=== PATIENT | male | born 1985 | race Caucasian/White ===

== ENCOUNTER 2024-11-25 17:14 | Inpatient (IN) | payer OTHER ==
[~2024-11-25] VITALS: Ht 172.7 cm; Wt 106.7 kg
[2024-11-25] MEDS ORDERED: LEVO-72 PO (18:12)
[2024-11-25] MEDS ORDERED: PANT-31 PO (18:12)
[2024-11-25] MEDS ORDERED: MOME17SP11 NASAL (18:12)
[2024-11-25] MEDS ORDERED: CETI-432 PO (18:12)
[2024-11-25] MEDS ORDERED: TAMS0.4C94 PO (18:12)
[2024-11-25] MEDS ORDERED: ESCI-8 PO (18:12)
[2024-11-25] MEDS ORDERED: FENO54TA7 PO (18:12)
[2024-11-25 18:57] LABS: PLATELET COUNT (AUTO) 338 K/uL (150-450); RED BLOOD CELL COUNT(AUTO) 5.69 MIL/uL (4.50-5.90); RED CELL DISTRIBUTION WIDTH 13.2 % (11.5-14.5); WHITE BLOOD COUNT (AUTO) 14.2 K/uL (4.5-11.0)
[2024-11-25 19:05] LABS: CALCIUM, TOTAL 10.1 mg/dL (8.8-10.5); CREATININE 1.32 mg/dL (0.60-1.30); GLOMERULAR FILTR. RATE CALC > 60 mL/min (>60); GLUCOSE,RANDOM 101 mg/dL (70-110); SODIUM SERUM 138 mmol/L (136-145); UREA NITROGEN, BLOOD 21 mg/dL (7-18)
[2024-11-25 20:10] LABS: APPEARANCE,URINE TURBID (CLEAR); GLUCOSE, URINE (UA) TRACE mg/dL (NEGATIVE); LEUKOCYTE ESTERASE ,URINE SMALL (NEGATIVE); NITRATE,URINE POSITIVE (NEGATIVE); OCCULT BLOOD,URINE NEGATIVE (NEGATIVE); SPECIFIC GRAVITIY, URINE 1.043 (1.003-1.030)
[2024-11-25 20:28] LABS: SULFOSALICYLIC ACID,URINE 1+ (Negative)
[2024-11-25 20:30] LABS: AMORPHOUS SEDIMENT,UR Few /LPF (None Seen); CALCIUM OXALATE CRYSTALS,UR Moderate /LPF (None Seen); SQUAMOUS EPITHELIAL CELL,UR Rare /LPF (None Seen)
[2024-11-25] MEDS: ONDANSETRON HCL 4 MG/2 ML VIAL IVP ONE (20:54)
[2024-11-25] MEDS: MORPHINE SULFATE 4 MG/ML SYRINGE IVP ONE (20:54)
[2024-11-25] MEDS: SODIUM CHLORIDE 0.9% 2,000 ML IV ONE (20:55)
[2024-11-25] MEDS ORDERED: MAGNESIUM HYDROXIDE SUSPENSION 30 ML UDCUP PO PRN (21:15)
[2024-11-25] MEDS ORDERED: ZOLPIDEM TARTRATE 5 MG TABLET PO PRN (21:15)
[2024-11-25] MEDS ORDERED: ACETAMINOPHEN 325 MG TABLET PO PRN (21:15)
[2024-11-25] MEDS ORDERED: BISACODYL 10 MG RECTAL RECTAL SUPPOSITORY PR PRN (21:15)
[2024-11-25] MEDS ORDERED: SODIUM CHLORIDE 0.9% 1,000 ML IV ONE (21:30)
[2024-11-25 22:15] LABS: C.DIFF GDH ANTIGEN, Stool Negative (Negative); C.DIFF TOXINS A&B, Stool Negative (Negative)
[2024-11-25 22:31] VITALS: BP 133/90; PULSE 104; RESP 17; TEMP 98.6; O2SAT 96
[2024-11-26] MEDS: HEPARIN SODIUM,PORCINE 5,000 UNITS/ML VIAL SQ SCH
[2024-11-26 04:04] VITALS: BP 123/83; PULSE 83; RESP 16; TEMP 98.2; O2SAT 96
[2024-11-26] MEDS: MORPHINE SULFATE 2 MG/ML SYRINGE IVP ONE (04:10)
[2024-11-26] MEDS: ONDANSETRON HCL 4 MG/2 ML VIAL IVP PRN (04:11)
[2024-11-26] MEDS: SODIUM CHLORIDE 0.9% 1,000 ML IV ONE (04:37)
[2024-11-26 06:23] LABS: PLATELET COUNT (AUTO) 283 K/uL (150-450); RED BLOOD CELL COUNT(AUTO) 4.95 MIL/uL (4.50-5.90); RED CELL DISTRIBUTION WIDTH 13.5 % (11.5-14.5); WHITE BLOOD COUNT (AUTO) 9.3 K/uL (4.5-11.0)
[2024-11-26 06:34] LABS: CALCIUM, TOTAL 8.3 mg/dL (8.8-10.5); CREATININE 0.88 mg/dL (0.60-1.30); GLOMERULAR FILTR. RATE CALC > 60 mL/min (>60); GLUCOSE,RANDOM 88 mg/dL (70-110); SODIUM SERUM 142 mmol/L (136-145); UREA NITROGEN, BLOOD 16 mg/dL (7-18)
[2024-11-26 08:29] VITALS: BP 121/73; PULSE 75; RESP 18; TEMP 97.7; O2SAT 95
[2024-11-26] MEDS: DOCUSATE SODIUM 100 MG CAPSULE PO SCH (09:00)
[2024-11-26] MEDS: FENOFIBRATE 54 MG TABLET PO SCH (09:00)
[2024-11-26] MEDS: TAMSULOSIN HCL 0.4 MG CAPSULE PO SCH (09:00)
[2024-11-26] MEDS ORDERED: PANTOPRAZOLE SODIUM 40 MG DR TABLET PO SCH (09:00)
[2024-11-26] MEDS: CETIRIZINE HCL 10 MG TABLET PO SCH (09:00)
[2024-11-26] MEDS: ESCITALOPRAM OXALATE 10 MG TABLET PO SCH (09:00)
[2024-11-26] MEDS: PANTOPRAZOLE SODIUM 40 MG DR TABLET PO SCH (09:00)
[2024-11-26] MEDS: MOMETASONE FUROATE 50 MCG/SPRAY 17 GM NASAL SPRAY NASAL SCH (09:30)
[2024-11-26] MEDS: MORPHINE SULFATE 2 MG/ML SYRINGE IVP PRN (11:15)
[2024-11-26] MEDS: SODIUM CHLORIDE 0.9% 1,000 ML IV SCH (11:21)
[2024-11-26 15:29] VITALS: BP 118/73; PULSE 68; RESP 20; TEMP 98.3; O2SAT 97
[2024-11-26 19:23] VITALS: BP 138/94; PULSE 73; RESP 20; TEMP 97.9; O2SAT 96
[2024-11-27 04:48] VITALS: BP 121/82; PULSE 75; RESP 20; TEMP 97.7; O2SAT 96
[2024-11-27 07:15] VITALS: BP 113/84; PULSE 71; RESP 18; TEMP 97.9; O2SAT 97
[2024-11-27 07:25] LABS: CALCIUM, TOTAL 8.4 mg/dL (8.8-10.5); CREATININE 0.80 mg/dL (0.60-1.30); GLOMERULAR FILTR. RATE CALC > 60 mL/min (>60); GLUCOSE,RANDOM 91 mg/dL (70-110); SODIUM SERUM 139 mmol/L (136-145); UREA NITROGEN, BLOOD 11 mg/dL (7-18)
[2024-11-27 07:26] LABS: PLATELET COUNT (AUTO) 263 K/uL (150-450); RED BLOOD CELL COUNT(AUTO) 4.79 MIL/uL (4.50-5.90); RED CELL DISTRIBUTION WIDTH 13.3 % (11.5-14.5); WHITE BLOOD COUNT (AUTO) 6.9 K/uL (4.5-11.0)
[2024-11-27 20:00] VITALS: BP 123/85; PULSE 78; RESP 18; TEMP 97.7; O2SAT 97
[2024-11-28 01:50] VITALS: BP 118/82; PULSE 72; RESP 18; O2SAT 96
[2024-11-28 05:39] VITALS: BP 113/75; PULSE 69; RESP 17; TEMP 97.7; O2SAT 96
[2024-11-28 06:58] LABS: CALCIUM, TOTAL 8.1 mg/dL (8.8-10.5); CREATININE 0.82 mg/dL (0.60-1.30); GLOMERULAR FILTR. RATE CALC > 60 mL/min (>60); GLUCOSE,RANDOM 85 mg/dL (70-110); PLATELET COUNT (AUTO) 233 K/uL (150-450); RED BLOOD CELL COUNT(AUTO) 4.38 MIL/uL (4.50-5.90); RED CELL DISTRIBUTION WIDTH 13.0 % (11.5-14.5); SODIUM SERUM 140 mmol/L (136-145); UREA NITROGEN, BLOOD 5 mg/dL (7-18); WHITE BLOOD COUNT (AUTO) 5.2 K/uL (4.5-11.0)
[2024-11-28 08:14] VITALS: BP 120/71; PULSE 58; RESP 18; TEMP 97.9; O2SAT 97
[2024-11-28] MEDS: SULFAMETHOX/TRIMETH DS 800-160 MG/TABLET PO SCH (14:12)
[2024-11-28 20:00] VITALS: BP 139/91; PULSE 88; RESP 18; TEMP 97.7; O2SAT 95
[2024-11-28] MEDS: BISMUTH SUBSALICYLATE 262 MG CHEWABLE TABLET CHEW PRN (21:21)
[2024-11-29 05:21] VITALS: BP 106/74; PULSE 70; RESP 18; TEMP 97.5; O2SAT 95
[2024-11-29 07:45] VITALS: BP 119/79; PULSE 63; RESP 18; TEMP 97.9; O2SAT 96
[2024-11-29] MEDS ORDERED: DOCU-385 PO (11:48)
[2024-11-29] MEDS ORDERED: METR500 PO (11:50)
[2024-11-29] MEDS ORDERED: SULF1TAB42 PO (11:52)
[2024-11-29] MEDS ORDERED: [UNRECOGNIZED DRUG - CODE] PO (11:53)
[2024-11-29 19:10] VITALS: BP 117/75; PULSE 79; RESP 18; TEMP 98.1; O2SAT 96
== END 2024-11-29 22:12 | DRG 389 ==
LOC: EMS 17:14 → EDH 21:11 → 5S 22:23 → 6S 11-26 08:20 → 6N 11-26 09:10
PROVIDERS: ADMIT Internal Medicine; ATTEND Internal Medicine
DX: K56.609 Unspecified intestinal obstruction, unspecified as to partial versus complete obstruction (principal); N17.9 Acute kidney failure, unspecified; N39.0 Urinary tract infection, site not specified; K52.9 Noninfective gastroenteritis and colitis, unspecified; I10 Essential (primary) hypertension; K21.9 Gastro-esophageal reflux disease without esophagitis; E78.5 Hyperlipidemia, unspecified; F99 Mental disorder, not otherwise specified; N40.0 Benign prostatic hyperplasia without lower urinary tract symptoms; Z87.891 Personal history of nicotine dependence; Z88.0 Allergy status to penicillin; Z88.5 Allergy status to narcotic agent; Z91.041 Radiographic dye allergy status; Z91.51 Personal history of suicidal behavior; Z79.899 Other long term (current) drug therapy; Z88.8 Allergy status to other drugs, medicaments and biological substances
CPT/HCPCS: 74019; 74176; 80048; 81001; 81002; 83690; 85025; 87077; 87086; 87186; 87324; 87449; 93005; 99285; J1644; J2270; J2405; J7030